=== PATIENT | female | born 1955 | race Caucasian/White ===

== ENCOUNTER 2016-07-11 16:53 | Emergency (ER) | payer OTHER | END 2016-07-11 20:50 | disposition short-term general hospital (02) | LOC: ER 16:53 | DX: K63.1 Perforation of intestine (nontraumatic) (principal); N17.9 Acute kidney failure, unspecified; D72.829 Elevated white blood cell count, unspecified; C34.90 Malignant neoplasm of unspecified part of unspecified bronchus or lung; I10 Essential (primary) hypertension; J44.9 Chronic obstructive pulmonary disease, unspecified; E78.00 Pure hypercholesterolemia, unspecified; Z87.891 Personal history of nicotine dependence; Z90.710 Acquired absence of both cervix and uterus | CPT/HCPCS: 36415; 51702; 96361; 96365; 96375 ==

== ENCOUNTER 2016-07-26 14:45 | Emergency (ER) | payer OTHER | END 2016-07-26 19:58 | disposition short-term general hospital (02) | LOC: ER 14:45 | DX: K57.33 Diverticulitis of large intestine without perforation or abscess with bleeding (principal); I10 Essential (primary) hypertension; Z87.891 Personal history of nicotine dependence; Z90.711 Acquired absence of uterus with remaining cervical stump | CPT/HCPCS: 36415; 36430; 96376; P9021; Q9963 ==